=== PATIENT | female | born 1970 | race Caucasian/White ===

== ENCOUNTER 2021-06-23 14:35 | Inpatient (IN) | payer OTHER ==
[2021-06-23] MEDS ORDERED: ACETAMINOPHEN 325 MG TABLET (FP) PO PRN ×2 (15:20)
[2021-06-23] MEDS ORDERED: DICYCLOMINE HCL 10 MG CAPSULE PO PRN (15:20)
[2021-06-23] MEDS ORDERED: BISMUTH SUBSALICYLATE 524 MG/30 ML PO PRN (15:20)
[2021-06-23] MEDS ORDERED: IBUPROFEN 400 MG TABLET (FP) PO PRN (15:20)
[2021-06-23] MEDS ORDERED: ONDANSETRON *ODT* 4 MG TABLET SL PRN (15:20)
[2021-06-23] MEDS ORDERED: LOPERAMIDE HCL 2 MG CAPSULE PO PRN (15:20)
[2021-06-23] MEDS ORDERED: BENZOCAINE/MENTHOL (CHLORASEPTIC ) LOZENGE MM PRN (15:20)
[2021-06-23] MEDS ORDERED: NALOXONE HCL 0.4 MG/ML VIAL IM PRN (15:20)
[2021-06-23] MEDS ORDERED: MAG HYDROX/AL HYDROX/SIMETH 30 ML UNIT-DOSE CUP PO PRN (15:20)
[2021-06-23 18:31] VITALS: BMI 24.4
[2021-06-23] MEDS: hydrOXYzine PAMOATE 25 MG CAPSULE (FP) PO SCH ×2 (19:12→22:51)
[2021-06-23] MEDS: chlordiazePOXIDE HCL 25 MG CAPSULE PO PRN (19:13)
[2021-06-23] MEDS: METHOCARBAMOL 500 MG TABLET PO PRN (19:35)
[2021-06-23] MEDS: chlordiazePOXIDE HCL 25 MG CAPSULE PO SCH (22:51)
[2021-06-23] MEDS: MELATONIN 5 MG TABLETS PO SCH (22:51)
[2021-06-23] MEDS: THIAMINE HCL 100 MG TABLET (FP) PO SCH (22:52)
[2021-06-24] MEDS: chlordiazePOXIDE HCL 25 MG CAPSULE PO PRN (01:41)
[2021-06-24] MEDS: METHOCARBAMOL 500 MG TABLET PO PRN ×2 (03:04→10:32)
[2021-06-24] MEDS: hydrOXYzine PAMOATE 25 MG CAPSULE (FP) PO SCH ×5 (05:08→22:25)
[2021-06-24] MEDS: chlordiazePOXIDE HCL 25 MG CAPSULE PO SCH ×4 (05:08→22:25)
[2021-06-24] MEDS: PRENATAL VITAMINS W/ FOLIC ACID TABLET (FP) PO SCH (10:35)
[2021-06-24 12:15] LABS: HEMATOCRIT 36.2 % (32.4-45.2); HEMOGLOBIN 12.1 GM/dL (10.7-15.3); MCH 31.5 pg (25.7-33.7); MCHC 33.3 g/dl (32.0-36.0); MEAN CELL VOLUME 94.6 fl (80-96); MEAN PLT VOLUME 7.7 fl (7.5-11.1); PLATELET COUNT 243 10^3/uL (134-434); RBC 3.83 M/mm3 (3.60-5.2); RDW 13.5 % (11.6-15.6); WHITE BLOOD COUNT 5.6 K/mm3 (4.0-10.0)
[2021-06-24 12:25] LABS: ALBUMIN 4.1 g/dl (3.4-5.0); BLOOD UREA NITROGEN 8.1 mg/dL (7-18); CALCIUM 9.5 mg/dL (8.5-10.1)
[2021-06-24 12:29] LABS: CREATININE 0.6 mg/dL (0.55-1.3)
[2021-06-24 12:30] LABS: BILIRUBIN,TOTAL 0.9 mg/dL (0.2-1); TOT PROT 7.6 g/dl (6.4-8.2)
[2021-06-24] MEDS: MAGNESIUM CITRATE 300 ML BOTTLE PO PRN (18:01)
[2021-06-24] MEDS: MELATONIN 5 MG TABLETS PO SCH (22:25)
[2021-06-24] MEDS: THIAMINE HCL 100 MG TABLET (FP) PO SCH (22:25)
[2021-06-25] MEDS: hydrOXYzine PAMOATE 25 MG CAPSULE (FP) PO SCH ×5 (06:21→22:23)
[2021-06-25] MEDS: chlordiazePOXIDE HCL 25 MG CAPSULE PO SCH ×4 (06:21→22:23)
[2021-06-25] MEDS: PRENATAL VITAMINS W/ FOLIC ACID TABLET (FP) PO SCH (10:05)
[2021-06-25] MEDS: METHOCARBAMOL 500 MG TABLET PO PRN ×2 (10:05→22:23)
[2021-06-25] MEDS: MAGNESIUM HYDROX 2400MG/30ML ORAL SUSPENSION 30 ML CUP PO PRN (11:46)
[2021-06-25 13:07] LABS: SARS-CoV-2 NAA Not Detected (Not Detected)
[2021-06-25] MEDS: MAGNESIUM CITRATE 300 ML BOTTLE PO PRN (17:47)
[2021-06-25] MEDS: MELATONIN 5 MG TABLETS PO SCH (22:22)
[2021-06-25] MEDS: THIAMINE HCL 100 MG TABLET (FP) PO SCH (22:23)
[2021-06-26] MEDS ORDERED: chlordiazePOXIDE HCL 10 MG CAPSULE PO PRN
[2021-06-26] MEDS: chlordiazePOXIDE HCL 10 MG CAPSULE PO SCH ×4 (05:28→22:11)
[2021-06-26] MEDS: hydrOXYzine PAMOATE 25 MG CAPSULE (FP) PO SCH ×5 (05:29→22:08)
[2021-06-26] MEDS: METHOCARBAMOL 500 MG TABLET PO PRN (10:09)
[2021-06-26] MEDS: PRENATAL VITAMINS W/ FOLIC ACID TABLET (FP) PO SCH (10:09)
[2021-06-26] MEDS: DOCUSATE SODIUM 100 MG CAPSULE (FP) PO SCH ×2 (13:40→22:08)
[2021-06-26] MEDS: MAGNESIUM HYDROX 2400MG/30ML ORAL SUSPENSION 30 ML CUP PO PRN (18:02)
[2021-06-26] MEDS: THIAMINE HCL 100 MG TABLET (FP) PO SCH (22:08)
[2021-06-26] MEDS: MELATONIN 5 MG TABLETS PO SCH (22:09)
[2021-06-27] MEDS: hydrOXYzine PAMOATE 25 MG CAPSULE (FP) PO SCH ×2 (05:49→10:31)
[2021-06-27] MEDS: chlordiazePOXIDE HCL 10 MG CAPSULE PO SCH ×2 (05:49→17:35)
[2021-06-27] MEDS: DOCUSATE SODIUM 100 MG CAPSULE (FP) PO SCH ×3 (05:49→22:16)
[2021-06-27] MEDS: PRENATAL VITAMINS W/ FOLIC ACID TABLET (FP) PO SCH (10:30)
[2021-06-27] MEDS: METHOCARBAMOL 500 MG TABLET PO PRN ×2 (10:31→22:17)
[2021-06-27] MEDS ORDERED: SODIUM PHOSPHATE/NA BIPHOS 133 ML ENEMA RC ONE (12:46)
[2021-06-27] MEDS: hydrOXYzine PAMOATE 25 MG CAPSULE (FP) PO PRN ×3 (13:04→22:16)
[2021-06-27] MEDS: POLYETHYLENE GLYCOL (HEALTHYLAX) 3350 17 GM PACKET PO PRN ×2 (17:36→22:18)
[2021-06-27] MEDS: MELATONIN 5 MG TABLETS PO SCH (22:16)
[2021-06-27] MEDS: THIAMINE HCL 100 MG TABLET (FP) PO SCH (22:17)
[2021-06-28] MEDS ORDERED: chlordiazePOXIDE HCL 10 MG CAPSULE PO ONE (05:00)
[2021-06-28] MEDS: DOCUSATE SODIUM 100 MG CAPSULE (FP) PO SCH ×3 (05:39→22:06)
[2021-06-28] MEDS ORDERED: POLYETHYLENE GLYCOL (HEALTHYLAX) 3350 17 GM PACKET PO ONE (10:13)
[2021-06-28] MEDS: PRENATAL VITAMINS W/ FOLIC ACID TABLET (FP) PO SCH (10:23)
[2021-06-28] MEDS: hydrOXYzine PAMOATE 25 MG CAPSULE (FP) PO PRN ×3 (10:23→22:06)
[2021-06-28] MEDS: METHOCARBAMOL 500 MG TABLET PO PRN ×2 (10:25→18:17)
[2021-06-28] MEDS: SENNOSIDES 8.6MG TABLET (FP) PO ONE ×2 (10:26→15:29)
[2021-06-28] MEDS ORDERED: SENNOSIDES 8.6MG TABLET (FP) PO ONE (14:00)
[2021-06-28] MEDS: MAGNESIUM HYDROX 2400MG/30ML ORAL SUSPENSION 30 ML CUP PO PRN (18:19)
[2021-06-28] MEDS: MELATONIN 5 MG TABLETS PO SCH (22:06)
[2021-06-28] MEDS: THIAMINE HCL 100 MG TABLET (FP) PO SCH (22:06)
[2021-06-29] MEDS: DOCUSATE SODIUM 100 MG CAPSULE (FP) PO SCH (05:36)
[2021-06-29] MEDS ORDERED: chlordiazePOXIDE 5 MG CAPSULE PO ONE (06:00)
[2021-06-29 09:28] VITALS: BP 126/86; PULSE 83; TEMP 98.2
== END 2021-06-29 10:00 | disposition home or self-care (01) | DRG 775 ==
LOC: YASAS 14:35 → Y6N 18:12
PROVIDERS: ADMIT Allergy & Immunology; ATTEND Allergy & Immunology
PROC: HZ2ZZZZ Detoxification Services for Substance Abuse Treatment (ICD-10-PCS; principal; 2021-06-23)
DX: F10.230 Alcohol dependence with withdrawal, uncomplicated (principal); F17.210 Nicotine dependence, cigarettes, uncomplicated; F10.280 Alcohol dependence with alcohol-induced anxiety disorder; F10.282 Alcohol dependence with alcohol-induced sleep disorder; K59.09 Other constipation; Z87.820 Personal history of traumatic brain injury
CPT/HCPCS: 36415; 80053; 85027; 86780; 93005; 93010; C9803-CS; U0003; U0005

== ENCOUNTER 2021-09-03 19:05 | Inpatient (IN) | payer OTHER ==
[2021-09-03 22:21] VITALS: BMI 24.3
[2021-09-03] MEDS ORDERED: IBUPROFEN 400 MG TABLET (FP) PO PRN (22:46)
[2021-09-03] MEDS ORDERED: ACETAMINOPHEN 325 MG TABLET (FP) PO PRN ×2 (22:46)
[2021-09-03] MEDS ORDERED: BENZOCAINE/MENTHOL (CHLORASEPTIC ) LOZENGE MM PRN (22:46)
[2021-09-03] MEDS ORDERED: DICYCLOMINE HCL 10 MG CAPSULE PO PRN (22:46)
[2021-09-03] MEDS ORDERED: MAGNESIUM HYDROX 2400MG/30ML ORAL SUSPENSION 30 ML CUP PO PRN (22:46)
[2021-09-03] MEDS ORDERED: MAG HYDROX/AL HYDROX/SIMETH 30 ML UNIT-DOSE CUP PO PRN (22:46)
[2021-09-03] MEDS ORDERED: BISMUTH SUBSALICYLATE 524 MG/30 ML PO PRN (22:46)
[2021-09-03] MEDS ORDERED: ONDANSETRON *ODT* 4 MG TABLET SL PRN (22:46)
[2021-09-03] MEDS ORDERED: IBUPROFEN 600 MG TABLET (FP) PO PRN (22:46)
[2021-09-03] MEDS ORDERED: LOPERAMIDE HCL 2 MG CAPSULE PO PRN (22:46)
[2021-09-03] MEDS ORDERED: chlordiazePOXIDE HCL 25 MG CAPSULE PO PRN (22:48)
[2021-09-03] MEDS ORDERED: METOPROLOL TARTRATE 25 MG TABLET (FP) PO ONE (22:48)
[2021-09-03] MEDS ORDERED: chlordiazePOXIDE HCL 25 MG CAPSULE ONE (22:54)
[2021-09-03] MEDS ORDERED: METOPROLOL TARTRATE 25 MG TABLET (FP) ONE (22:54)
[2021-09-03] MEDS: chlordiazePOXIDE HCL 25 MG CAPSULE PO SCH (22:57)
[2021-09-04] MEDS: METHOCARBAMOL 500 MG TABLET PO PRN (04:04)
[2021-09-04] MEDS: chlordiazePOXIDE HCL 25 MG CAPSULE PO SCH ×4 (05:51→23:02)
[2021-09-04] MEDS: PRENATAL VITAMINS W/ FOLIC ACID TABLET (FP) PO SCH (12:10)
[2021-09-04 14:21] LABS: HEMATOCRIT 32.1 % (32.4-45.2); MCH 32.9 pg (25.7-33.7); MCHC 34.3 g/dl (32.0-36.0); MEAN CELL VOLUME 95.7 fl (80-96); MEAN PLT VOLUME 7.7 fl (7.5-11.1); PLATELET COUNT 159 10^3/uL (134-434); RBC 3.35 M/mm3 (3.60-5.2); RDW 14.7 % (11.6-15.6)
[2021-09-04 14:42] LABS: CALCIUM 8.6 mg/dL (8.5-10.1)
[2021-09-04 14:43] LABS: ALBUMIN 3.9 g/dl (3.4-5.0); BLOOD UREA NITROGEN 11.8 mg/dL (7-18)
[2021-09-04 14:46] LABS: CREATININE 0.5 mg/dL (0.55-1.3)
[2021-09-04 14:47] LABS: TOT PROT 7.2 g/dl (6.4-8.2)
[2021-09-04 14:48] LABS: BILIRUBIN,TOTAL 0.7 mg/dL (0.2-1)
[2021-09-04] MEDS: MELATONIN 5 MG TABLETS PO SCH (23:03)
[2021-09-04] MEDS: THIAMINE HCL 100 MG TABLET (FP) PO SCH (23:03)
[2021-09-05] MEDS: chlordiazePOXIDE HCL 25 MG CAPSULE PO SCH ×4 (06:33→22:54)
[2021-09-05] MEDS: PRENATAL VITAMINS W/ FOLIC ACID TABLET (FP) PO SCH (10:08)
[2021-09-05] MEDS: MAGNESIUM CITRATE 300 ML BOTTLE PO PRN (10:09)
[2021-09-05] MEDS: MELATONIN 5 MG TABLETS PO SCH (22:54)
[2021-09-05] MEDS: THIAMINE HCL 100 MG TABLET (FP) PO SCH (22:54)
[2021-09-06] MEDS ORDERED: chlordiazePOXIDE HCL 10 MG CAPSULE PO PRN
[2021-09-06] MEDS: chlordiazePOXIDE HCL 10 MG CAPSULE PO SCH ×4 (05:51→22:15)
[2021-09-06] MEDS: PRENATAL VITAMINS W/ FOLIC ACID TABLET (FP) PO SCH (10:53)
[2021-09-06] MEDS: hydrOXYzine PAMOATE 25 MG CAPSULE (FP) PO PRN (10:53)
[2021-09-06] MEDS: METHOCARBAMOL 500 MG TABLET PO PRN ×2 (10:53→22:15)
[2021-09-06] MEDS ORDERED: SODIUM PHOSPHATE/NA BIPHOS 133 ML ENEMA PR ONE (13:47)
[2021-09-06] MEDS: MINERAL OIL/PET HY-PHL TOPICAL OINTMENT 454 GM JAR TP SCH ×2 (15:09→23:23)
[2021-09-06] MEDS: MELATONIN 5 MG TABLETS PO SCH (22:15)
[2021-09-06] MEDS: THIAMINE HCL 100 MG TABLET (FP) PO SCH (22:15)
[2021-09-07] MEDS: chlordiazePOXIDE HCL 10 MG CAPSULE PO SCH ×2 (06:17→17:58)
[2021-09-07] MEDS: PRENATAL VITAMINS W/ FOLIC ACID TABLET (FP) PO SCH (09:46)
[2021-09-07] MEDS: MAGNESIUM CITRATE 300 ML BOTTLE PO PRN (09:46)
[2021-09-07] MEDS: MINERAL OIL/PET HY-PHL TOPICAL OINTMENT 454 GM JAR TP SCH ×2 (09:46→22:16)
[2021-09-07] MEDS: MELATONIN 5 MG TABLETS PO SCH (22:16)
[2021-09-07] MEDS: THIAMINE HCL 100 MG TABLET (FP) PO SCH (22:16)
[2021-09-07] MEDS: hydrOXYzine PAMOATE 25 MG CAPSULE (FP) PO PRN (22:17)
[2021-09-07] MEDS: METHOCARBAMOL 500 MG TABLET PO PRN (22:17)
[2021-09-08] MEDS ORDERED: chlordiazePOXIDE HCL 10 MG CAPSULE PO ONE (05:00)
[2021-09-08] MEDS: METHOCARBAMOL 500 MG TABLET PO PRN (06:05)
[2021-09-08] MEDS: PRENATAL VITAMINS W/ FOLIC ACID TABLET (FP) PO SCH (10:26)
[2021-09-08] MEDS: MINERAL OIL/PET HY-PHL TOPICAL OINTMENT 454 GM JAR TP SCH (10:28)
[2021-09-08 12:46] VITALS: BP 126/66; PULSE 72; TEMP 98.1
== END 2021-09-08 13:26 | disposition home or self-care (01) | DRG 775 ==
LOC: YASAS 19:05 → Y3N 09-04 02:33
PROVIDERS: ADMIT Allergy & Immunology; ATTEND Allergy & Immunology
PROC: HZ2ZZZZ Detoxification Services for Substance Abuse Treatment (ICD-10-PCS; principal; 2021-09-04)
DX: F10.230 Alcohol dependence with withdrawal, uncomplicated (principal); F10.220 Alcohol dependence with intoxication, uncomplicated; F10.282 Alcohol dependence with alcohol-induced sleep disorder; G47.00 Insomnia, unspecified; S82.831A Other fracture of upper and lower end of right fibula, initial encounter for closed fracture; Y04.2XXA Assault by strike against or bumped into by another person, initial encounter; Z87.11 Personal history of peptic ulcer disease; Z87.820 Personal history of traumatic brain injury; Z99.89 Dependence on other enabling machines and devices
CPT/HCPCS: 36415; 73610-TC-RT-FY; 73630-TC-RT-FY; 80053; 85027; 86780; C9803-CS; U0003; U0005